=== PATIENT | female | born 1985 | race Caucasian/White ===

== ENCOUNTER 2016-11-15 17:24 | Emergency (ER) | payer OTHER, SELFPAY ==
[2016-11-15] MEDS ORDERED: Famotidine In NaCl 20 mg/50 ml Premix Bag ONE (18:15)
[2016-11-15] MEDS ORDERED: diphenhydrAMINE HCl 50 MG/ML 1 ML VIAL ONE (18:15)
[2016-11-15] MEDS ORDERED: Ketorolac Tromethamine 30 MG/ML VIAL ONE (18:15)
[2016-11-15] MEDS ORDERED: Prochlorperazine 10 MG/2 ML VIAL ONE (18:15)
--- NOTE | 2016-11-15 20:34 | ERRECORD ---
[facility] EMERGENCY RECORD HPI HEADACHE (18:15 JPIP) CHIEF COMPLAINT: Patient presents for evaluation of migraine headache. HISTORIAN: History provided by patient. LOCATION: No localizing symptoms. QUALITY: Pain is dull in nature. SEVERITY: Maximum severity of pain rated as 10/10. 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 ASSOCIATED WITH FEMALE: No associated chills, No associated fever, No associated focal weakness, No associated neck pain, No associated syncope, No associated tingling, No associated numbness, +nausea and vomiting. EXACERBATED BY: Patient's condition exacerbated by eye opening, Patient's condition exacerbated by light. RELIEVED BY: Patient's condition relieved by nothing. RISK FACTORS: Subarachnoid hemorrahage risk factor analysis completed. ROS (18:16 JPIP) CONSTITUTIONAL: Historian denies chills, denies fever, reports malaise. EYES: Historian denies eye redness, reports photophobia, denies vision changes. ENT: Historian denies dysphagia, denies otalgia, denies rhinorrhea, denies sinus pain, denies sore throat. CARDIOVASCULAR: Historian denies chest pain. GI: Historian denies abdominal pain, reports nausea, reports vomiting. NEUROLOGIC: Historian denies confusion, denies dizziness, denies focal weakness, reports headache, denies lethargy, denies mental status changes, denies paresthesias, denies vertigo. NOTES: All systems reviewed, negative except as described above. PAST MEDICAL HISTORY (17:41 ERUI) MEDICAL HISTORY: Flu vaccine not up to date, Tetanus immunization up to date, Pneumococcal vaccine not up to date, Notes: patient reports h/o psoriasis and migraines., No past medical history of cardiac disease. Notes: migraines, PSORIASIS. reviewed 11/15/16. FEMALE SURGICAL HISTORY: Surgical history of section, Notes: 2004, 2011, 2012. Surgical history of section x 3,. reviewed 11/15/16. PSYCHIATRIC HISTORY: Psychiatric history includes, depression, Notes: patient reports does not take any meds for depression regardless of having a script. Psychiatric history includes, anxiety. 09/21/16depression. currently is not taking meds for dx. 11/15/16. SOCIAL HISTORY: Patient denies alcohol use, Patient denies drug use, Patient currently uses tobacco, Patient drinks &a-1R&a+25V*p+0X*c9864V*c202B*c15G*c2P*p-0X&a-25V&a+1R Name: Brii Bowden : 1985 F31 MedRec: [id number] AcctNum: [id number] Prepared: Shilpa Nov 15, 2016 19:51 by Interface Page 1 of 3 pMD [facility] EMERGENCY RECORD socially, Alcohol history notes: 3 beers, Patient denies drug use, Lives at home, with family, grandparents house. Patient smokes 1/2 packs per day. REVIEWED 09/21/16. FAMILY HISTORY: No known family hisotry. Family istory is not significant. reviewed 09/21/16. KNOWN ALLERGIES No Known Allergies CURRENT MEDICATIONS No recorded medications VITAL SIGNS VITAL SIGNS: Pulse: 100, Resp: 18, Pain: 10, O2 sat: 100 on Room Air, Time: 11/15/2016 17:37. (17:37 ERUI) BP: 105/69, Pulse: 91, Resp: 16, Temp: 97.8, Pain: 2, O2 sat: 100 on r/a, Time: 11/15/2016 19:35. (19:35 EMAT) PHYSICAL EXAM (18:18 JPIP) CONSTITUTIONAL: Vital Signs Reviewed, Patient afebrile, Pulse, tachycardic, Blood pressure normal, Respiratory rate normal, Patient appears, in moderate pain distress, Patient alert and oriented to person, place and time, Nursing notes reviewed. HEAD: Head exam included findings of head atraumatic, normocephalic. EYES: Eye exam included findings of eyelids normal to inspection, Pupils equally round and reactive to light, Left pupil 2 mm in size, Right pupil 2 mm in size, Extraocular muscles intact, Conjunctiva normal, Sclera normal, no periorbital ecchymosis, no periorbital edema, no periorbital erythema, no nystagmus. ENT: Ear exam normal, external ear normal, tympanic membranes normal, no foreign body, no drainage, no bleeding, Pharynx exam normal, not injected, no swelling, symmetrical, Mouth exam normal, mucous membranes moist. NECK: Neck exam included findings of normal range of motion, Trachea midline, no meningeal signs, no cervical adenopathy, no tenderness. RESPIRATORY CHEST: Respiratory exam included findings of no respiratory distress, Breath sounds clear, No wheezing, No rales, No rhonchi, Breath sounds not absent, Breath sounds not diminished. CARDIOVASCULAR: Cardiovascular exam included findings of, rate tachycardic, rhythm regular, Heart sounds normal. ABDOMEN FEMALE: Abdominal exam included findings of abdomen tender, to the epigastric region, to the left upper quadrant, mild intensity, Liver normal, Spleen normal, no distension, no mass, no pulsatile masses, no peritoneal signs, no rigidity, no guarding, no rebound. &a-1R&a+25V*p+0X*t1276Q*c202B*c15G*c2P*p-0X&a-25V&a+1R Name: Brii Bowden : 1985 F31 MedRec: [id number] AcctNum: [id number] Prepared: Shilpa Nov 15, 2016 19:51 by Interface Page 2 of 3 pMD [facility] EMERGENCY RECORD MEDICATION ADMINISTRATION SUMMARY Drug Name: famotidine (PF)-NaCl (iso-os), Dose Ordered: 20 mg, Route: IV Piggy Back, Status: Given, Time: 18:39 11/15/2016, Drug Name: Compazine injection, Dose Ordered: 5 mg, Route: IV Push, Status: Given, Time: 18:38 11/15/2016, Drug Name: diphenhydrAMINE injection, Dose Ordered: 25 mg, Route: IV Push, Status: Given, Time: 18:36 11/15/2016, Drug Name: Toradol injection, Dose Ordered: 30 mg, Route: IV Push, Status: Given, Time: 18:36 11/15/2016, Drug Name: Normal Saline, Dose Ordered: 1000 mL/hr, Route: IV Fluid Infusion, Status: Given, Time: 18:03 11/15/2016, Detailed record available in Medication Service section. DOCTOR NOTES RE-EVALUATION: Routine re-evaluation, after administration of antiemetics, Routine re-evaluation, after administration of IV fluids, The patient's condition has improved. (19:15 JPIP) Routine re-evaluation, after administration of antiemetics, Routine re-evaluation, after administration of IV fluids, The patient's condition has improved, sleeping quietly, easily awakened, states she's feeling much better. (19:21 JPIP) PROBLEM LIST No recorded problems DIAGNOSIS (19:22 JPIP) FINAL: PRIMARY: Migraine (unspecified). PRESCRIPTION (18:48 JPIP) Compazine tablet: TABLET : 10 mg : ORAL : Quantity: 1 Unit: tab(s) Route: ORAL Schedule: every 8 hours PRN Dispense: 20 May substitute. Refills: No Refills . NOTES: take with the diphenhydramine at onset of headache No refills. diphenhydrAMINE oral: TABLET : 50 mg : ORAL : Quantity: 1 Unit: tab(s) Route: ORAL Schedule: every 8 hours PRN Dispense: 20 May substitute. Refills: No Refills . NOTES: Take with the compazine at the onset of a headache. No refills. DISPOSITION PATIENT: Disposition Type: Discharge, Disposition: *Discharge Home, Condition: Good. (19:22 JPIP) Patient left the department. (19:48 EMAT) [place]: EMAT=[place] Almanza, Jacques HOLDERI=[place] Peña, Sujata JPIP=DO Astudillo Joseph &a-1R&a+25V*p+0X*b5319G*c202B*c15G*c2P*p-0X&a-25V&a+1R Name: Brii Bowden : 1985 F31 MedRec: [id number] AcctNum: [id number] Prepared: Shilpa Nov 15, 2016 19:51 by Interface Page 3 of 3 pMD MTDD
--- NOTE | 2016-11-15 20:39 | PICIS ---
[facility] EMERGENCY RECORD TRIAGE (MonNov 15, 2016 17:37 ERUI) TRIAGE NOTES: MIGRAINE X 1 WK, VOMTING. (MonNov 15, 2016 17:37 ERUI) PATIENT: NAME: Biri Bowden, AGE: 31, GENDER: female, : Mon1985, TIME OF GREET: MonNov 15, 2016 17:25, PREFERRED LANGUAGE: Guatemalan, ETHNICITY: Not or , ECODE BILLING MAP: [facility], SSN: [id number], Zip Code: [address], KG WEIGHT: 91.17, PHONE: , , , PERSON ID: [id number], PAYMENT: [employer] Self Pay, PCP: GAYLE Mccormick Kimberly. (MonNov 15, 2016 17:37 ERUI) COMPLAINT: MIGRAINE. (MonNov 15, 2016 17:37 ERUI) ADMISSION: URGENCY: 3 Urgent, ADMISSION SOURCE: Home, TRANSPORT: CAR, BED: TRIAGE. (MonNov 15, 2016 17:37 ERUI) SIRS SCORING: Heart Rate 55-109 (0), Temp range 96.8-101.1 (0), respiratory rate 12-24 (0), Mental Status altered: no (0). (17:41 ERUI) TRIAGE SCREENING: Patient denies suicidal ideation, Patient denies presence of domestic violence. (17:41 ERUI) LMP: Last menstrual period: 10/15/2016. (17:41 ERUI) TREATMENTS IN PROGRESS: Treatments given Prehospital: NONE. (17:41 ERUI) PROVIDERS: TRIAGE NURSE: Sujata Peña RN. (MonNov 15, 2016 17:37 ERUI) PREVIOUS VISIT ALLERGIES: No Known Allergies. (MonNov 15, 2016 17:37 ERUI) No Known Allergies. (17:41 ERUI) KNOWN ALLERGIES No Known Allergies CURRENT MEDICATIONS No recorded medications VITAL SIGNS VITAL SIGNS: Pulse: 100, Resp: 18, Pain: 10, O2 sat: 100 on Room Air, Time: 11/15/2016 17:37. (17:37 ERUI) BP: 105/69, Pulse: 91, Resp: 16, Temp: 97.8, Pain: 2, O2 sat: 100 on r/a, Time: 11/15/2016 19:35. (19:35 EMAT) NURSING ASSESSMENT: HEADACHE (17:41 ERUI) NURSING DIAGNOSIS: Nursing diagnosis: MIGRAINE. CONSTITUTIONAL: Patient arrives ambulatory, Gait steady, History obtained from patient, Patient appears comfortable, Patient cooperative, Patient alert, Oriented to person, place and time, Skin warm, Skin dry, Patient complains of MIGRAINE. PAIN: pressure pain, diffusely to the head, constant, Patient rates pain as 0 out of 10, Pain exacerbated by, NOISE, LIGHT, Nothing has been tried to alleviate the pain. HEADACHE: Headache assessment findings include headache not worst &a-1R&a+25V*p+0X*c5559K*c202B*c15G*c2P*p-0X&a-25V&a+1R Name: Brii Bowden : 1985 F31 MedRec: [id number] AcctNum: [id number] Prepared: Shilpa Nov 15, 2016 19:57 by Interface Page 1 of 8 pMD [facility] EMERGENCY RECORD of life, history of migraines, Associated with nausea, Associated with vomiting, Associated with photophobia, Associated with phonophobia. NEURO: Pupils equally round and reactive to light, Able to close eyes, Face symmetrical, Speech normal, GCS:, Eye opening: (4) - Spontaneous, Verbal: (5) - Oriented/conversive, Motor: (6) - Obeys commands/Spontaneous, Hand grasps equal, Upper extremity strength strong, Lower extremity strength strong, Foot press equal, no associated dizziness present, no associated vomiting. SAFETY: Side rails up, Cart/Stretcher in lowest position, Call light within reach, Hospital ID band on. NURSING PROCEDURE: DISCHARGE NOTE (19:35 EMAT) DISCHARGE: Patient discharged to home, ambulating without assistance, family driving, accompanied by other family member, Summary of Care printed/ provided, Discharge instructions given to patient, Prescriptions given and instructions on side effects given, Name of prescription(s) given: compazine, benadryl. BELONGINGS: Belongings remain with patient. VITAL SIGNS: BP: 105, / 69, Pulse: 91, Resp: 16, Temp: 97.8, Pain: 2, O2 sat: 100, on: r/a. NURSING PROCEDURE: IV (17:45 OO) PATIENT IDENITIFIER: Patient actively involved in identification process, Patient's identity verified by patient stating name, Patient's identity verified by patient stating date, Patient's identity verified by hospital ID bracelet. IV SITE 1: IV therapy indicated for medication administration, IV established, to the left antecubital, using a 20 gauge catheter, in one attempt, Saline lock established, Flushed with normal saline (mls): 10ML, Labs drawn at time of placement, labeled in the presence of the patient and sent to lab. ORDER DETAILS Order Name: SALINE LOCK, Status: Done, Time: 17:48 11/15/2016, User: [employer], - Ordered for: DO Astudillo Joseph, - Entered by: DO Astudillo Joseph - Shilpa Nov 15, 2016 17:40, - Quantity: 1. MEDICATION ADMINISTRATION SUMMARY Drug Name: famotidine (PF)-NaCl (iso-os), Dose Ordered: 20 mg, Route: IV Piggy Back, Status: Given, Time: 18:39 11/15/2016, Drug Name: Compazine injection, Dose Ordered: 5 mg, Route: IV Push, Status: Given, Time: 18:38 11/15/2016, Drug Name: diphenhydrAMINE injection, Dose Ordered: 25 mg, Route: IV Push, Status: Given, Time: 18:36 11/15/2016, Drug Name: Toradol injection, Dose Ordered: 30 mg, Route: IV Push, &a-1R&a+25V*p+0X*j9208F*c202B*c15G*c2P*p-0X&a-25V&a+1R Name: Brii Bowden : 1985 F31 MedRec: [id number] AcctNum: [id number] Prepared: osman Nov 15, 2016 19:57 by Interface Page 2 of 8 pMD [facility] EMERGENCY RECORD Status: Given, Time: 18:36 11/15/2016, Drug Name: Normal Saline, Dose Ordered: 1000 mL/hr, Route: IV Fluid Infusion, Status: Given, Time: 18:03 11/15/2016, Detailed record available in Medication Service section. MEDICATION SERVICE Compazine injection: Order: Compazine injection (prochlorperazine edisylate) - Dose: 5 mg : IV Push Schedule: Now Ordered by: Kyle Astudillo DO Entered by: Kyle Astudillo DO MonNov 15, 2016 17:41 , Acknowledged by: Jacques Almanza RN MonNov 15, 2016 18:37 Documented as given by: aJcques Almanza RN MonNov 15, 2016 18:38 Patient, Medication, Dose, Route and Time verified prior to administration. Amount given: 5 mg, IV SITE #1 IVPB or drip, initial infusion, IVPB mixed in: 100ml, Fluid: 0.9NS, via primary tubing, Awake and alert- acceptable, Catheter placement confirmed via flush prior to administration, IV site without signs or symptoms of infiltration during medication administration, No swelling during administration, No drainage during administration, IV flushed after administration, Correct patient, time, route, dose and medication confirmed prior to administration, Patient advised of actions and side-effects prior to administration, Allergies confirmed and medications reviewed prior to administration, Patient in position of comfort, Side rails up, Cart in lowest position, Family at bedside. : Follow Up : Response assessment performed, No signs or symptoms of allergic reaction noted. (19:26 ERUI) : Follow Up : Response assessment performed, No signs or symptoms of allergic reaction noted, Decreased pain, Advised not to ambulate without assistance, Patient in position of comfort, Side rails up, Cart in lowest position, Family at bedside. (18:50 EMAT) diphenhydrAMINE injection: Order: diphenhydrAMINE injection (diphenhydramine HCl) - Dose: 25 mg : IV Push Schedule: Now Ordered by: Kyle Astudillo DO Entered by: Kyle Astudillo DO MonNov 15, 2016 17:41 , Acknowledged by: Cristela Aaron LVN MonNov 15, 2016 18:04 Documented as given by: Jacques Almanza RN MonNov 15, 2016 18:36 Patient, Medication, Dose, Route and Time verified prior to administration. Amount given: 25 mg, IV SITE #1 IVP, initial medication, Slowly, Awake and alert- acceptable, Catheter placement confirmed via flush prior to administration, IV site without signs or symptoms of infiltration during medication administration, No swelling during administration, No drainage during administration, IV flushed after administration, Correct patient, time, route, dose and medication confirmed prior to administration, Patient advised of actions and side-effects prior to administration, Allergies confirmed and &a-1R&a+25V*p+0X*w1987M*c202B*c15G*c2P*p-0X&a-25V&a+1R Name: Brii Bowden : 1985 F31 MedRec: [id number] AcctNum: [id number] Prepared: MonNov 15, 2016 19:57 by Interface Page 3 of 8 pMD [facility] EMERGENCY RECORD medications reviewed prior to administration, Patient in position of comfort, Side rails up, Cart in lowest position, Family at bedside. : Follow Up : Response assessment performed, No signs or symptoms of allergic reaction noted, Decreased pain, _IV SITE #1:_. (19:26 ERUI) famotidine (PF)-NaCl (iso-os): Order: famotidine (PF)-NaCl (iso-os) (famotidine/sodium chloride, iso-osmotic/preservative free) - Dose: 20 mg : IV Piggy Back Schedule: Now Ordered by: Kyle Astudillo DO Entered by: Kyle Astudillo DO MonNov 15, 2016 17:40 , Acknowledged by: Cristela Aaron LVN MonNov 15, 2016 18:04 Documented as given by: Jacques Almanza RN MonNov 15, 2016 18:39 Patient, Medication, Dose, Route and Time verified prior to administration. Amount given: 20 mg, IV SITE #1 IVPB or drip, initial infusion, Premixed, via primary tubing, Awake and alert- acceptable, Catheter placement confirmed via flush prior to administration, IV site without signs or symptoms of infiltration during medication administration, No swelling during administration, No drainage during administration, IV flushed after administration, Correct patient, time, route, dose and medication confirmed prior to administration, Patient advised of actions and side-effects prior to administration, Allergies confirmed and medications reviewed prior to administration, Patient in position of comfort, Side rails up, Cart in lowest position, Family at bedside. : Follow Up : Response assessment performed, No signs or symptoms of allergic reaction noted, _IV SITE #1:_, Medication infusion discontinued, on MonNov 15, 2016 19:27, 50 minutes, . (19:26 ERUI) Normal Saline: Order: Normal Saline (0.9 % sodium chloride) - Dose: 1000 mL/hr : IV Fluid Infusion Schedule: Now Ordered by: Kyle Astudillo DO Entered by: Kyle Astudillo DO MonNov 15, 2016 17:40 , Acknowledged by: Cristela Aaron LVN MonNov 15, 2016 18:03 Documented as given by: Cristela Aaron LVN MonNov 15, 2016 18:03 Patient, Medication, Dose, Route and Time verified prior to administration. Amount given: 1 L, IV SITE #1 IV fluids established for hydration, IV SITE #1 into right antecubital, IV SITE #1 1st bag hung, IV SITE #1 bolus of 1000 ml established, via gravity tubing, Catheter placement confirmed via flush prior to administration, IV site without signs or symptoms of infiltration during medication administration, No swelling during administration, No drainage during administration, IV flushed after administration, Correct patient, time, route, dose and medication confirmed prior to administration, Patient advised of actions and side-effects prior to administration, Allergies confirmed and medications reviewed prior to administration, Patient in position of comfort, Side rails up, Cart in lowest &a-1R&a+25V*p+0X*c3837E*c202B*c15G*c2P*p-0X&a-25V&a+1R Name: Brii Bowden : 1985 F31 MedRec: [id number] AcctNum: [id number] Prepared: MonNov 15, 2016 19:57 by Interface Page 4 of 8 pMD [facility] EMERGENCY RECORD position, Family at bedside. : Follow Up : Response assessment performed, No signs or symptoms of allergic reaction noted, _IV SITE #1:_, Medication infusion discontinued, on MonNov 15, 2016 19:27, Total infusion time IV site 1 1 hour, 25 minutes, ., Total amount infused: 1000ML. (19:27 ERUI) Toradol injection: Order: Toradol injection (ketorolac tromethamine) - Dose: 30 mg : IV Push Schedule: Now Ordered by: Kyle Astudillo DO Entered by: Kyle Astudillo DO MonNov 15, 2016 17:41 , Acknowledged by: Cristela Aaron LVN MonNov 15, 2016 18:04 Documented as given by: Jacques Almanza RN osman Nov 15, 2016 18:36 Patient, Medication, Dose, Route and Time verified prior to administration. Amount given: 30 mg, IV SITE #1 IVP, initial medication, Slowly, Awake and alert- acceptable, Catheter placement confirmed via flush prior to administration, IV site without signs or symptoms of infiltration during medication administration, No swelling during administration, No drainage during administration, IV flushed after administration, Correct patient, time, route, dose and medication confirmed prior to administration, Patient advised of actions and side-effects prior to administration, Allergies confirmed and medications reviewed prior to administration, Patient in position of comfort, Side rails up, Cart in lowest position, Family at bedside. : Follow Up : Response assessment performed, No signs or symptoms of allergic reaction noted, _IV SITE #1:_. (19:27 ERUI) HPI HEADACHE (18:15 JPIP) CHIEF COMPLAINT: Patient presents for evaluation of migraine headache. HISTORIAN: History provided by patient. LOCATION: No localizing symptoms. QUALITY: Pain is dull in nature. SEVERITY: Maximum severity of pain rated as 10/10. 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 ASSOCIATED WITH FEMALE: No associated chills, No associated fever, No associated focal weakness, No associated neck pain, No associated syncope, No associated tingling, No associated numbness, +nausea and vomiting. EXACERBATED BY: Patient's condition exacerbated by eye opening, Patient's condition exacerbated by light. RELIEVED BY: Patient's condition relieved by nothing. RISK FACTORS: Subarachnoid hemorrahage risk factor analysis completed. ROS (18:16 JPIP) CONSTITUTIONAL: Historian denies chills, denies fever, reports malaise. &a-1R&a+25V*p+0X*v3223N*c202B*c15G*c2P*p-0X&a-25V&a+1R Name: Brii Bowden : 1985 F31 MedRec: [id number] AcctNum: [id number] Prepared: MonNov 15, 2016 19:57 by Interface Page 5 of 8 pMD [facility] EMERGENCY RECORD EYES: Historian denies eye redness, reports photophobia, denies vision changes. ENT: Historian denies dysphagia, denies otalgia, denies rhinorrhea, denies sinus pain, denies sore throat. CARDIOVASCULAR: Historian denies chest pain. GI: Historian denies abdominal pain, reports nausea, reports vomiting. NEUROLOGIC: Historian denies confusion, denies dizziness, denies focal weakness, reports headache, denies lethargy, denies mental status changes, denies paresthesias, denies vertigo. NOTES: All systems reviewed, negative except as described above. PAST MEDICAL HISTORY (17:41 ERUI) MEDICAL HISTORY: Flu vaccine not up to date, Tetanus immunization up to date, Pneumococcal vaccine not up to date, Notes: patient reports h/o psoriasis and migraines., No past medical history of cardiac disease. Notes: migraines, PSORIASIS. reviewed 11/15/16. FEMALE SURGICAL HISTORY: Surgical history of section, Notes: 2004, 2011, 2012. Surgical history of section x 3,. reviewed 11/15/16. PSYCHIATRIC HISTORY: Psychiatric history includes, depression, Notes: patient reports does not take any meds for depression regardless of having a script. Psychiatric history includes, anxiety. 09/21/16depression. currently is not taking meds for dx. 11/15/16. SOCIAL HISTORY: Patient denies alcohol use, Patient denies drug use, Patient currently uses tobacco, Patient drinks socially, Alcohol history notes: 3 beers, Patient denies drug use, Lives at home, with family, grandparents house. Patient smokes 1/2 packs per day. REVIEWED 09/21/16. FAMILY HISTORY: No known family hisotry. Family istory is not significant. reviewed 09/21/16. PHYSICAL EXAM (18:18 JPIP) CONSTITUTIONAL: Vital Signs Reviewed, Patient afebrile, Pulse, tachycardic, Blood pressure normal, Respiratory rate normal, Patient appears, in moderate pain distress, Patient alert and oriented to person, place and time, Nursing notes reviewed. HEAD: Head exam included findings of head atraumatic, normocephalic. EYES: Eye exam included findings of eyelids normal to inspection, Pupils equally round and reactive to light, Left pupil 2 mm in size, Right pupil 2 mm in size, Extraocular muscles intact, Conjunctiva normal, Sclera normal, no periorbital ecchymosis, no periorbital edema, no periorbital erythema, no nystagmus. ENT: Ear exam normal, external ear normal, tympanic membranes normal, no foreign body, no drainage, no bleeding, Pharynx exam normal, not injected, no swelling, symmetrical, Mouth exam normal, &a-1R&a+25V*p+0X*d2536A*c202B*c15G*c2P*p-0X&a-25V&a+1R Name: Brii Bowden : 1985 F31 MedRec: [id number] AcctNum: [id number] Prepared: MonNov 15, 2016 19:57 by Interface Page 6 of 8 pMD [facility] EMERGENCY RECORD mucous membranes moist. NECK: Neck exam included findings of normal range of motion, Trachea midline, no meningeal signs, no cervical adenopathy, no tenderness. RESPIRATORY CHEST: Respiratory exam included findings of no respiratory distress, Breath sounds clear, No wheezing, No rales, No rhonchi, Breath sounds not absent, Breath sounds not diminished. CARDIOVASCULAR: Cardiovascular exam included findings of, rate tachycardic, rhythm regular, Heart sounds normal. ABDOMEN FEMALE: Abdominal exam included findings of abdomen tender, to the epigastric region, to the left upper quadrant, mild intensity, Liver normal, Spleen normal, no distension, no mass, no pulsatile masses, no peritoneal signs, no rigidity, no guarding, no rebound. EVENTS TRANSFER: Triage to Emergency Triage. (MonNov 15, 2016 17:37 ERUI) Emergency Triage to Emergency Room -02. (17:38 ERUI) Emergency Emergency Room -02 to Holding (Hold Bed). (19:40 WJAN) Emergency Emergency Room -02 to Holding (Hold Bed). (19:40 WJAN) Emergency Emergency Room -02 to Holding. (19:40 WJAN) Removed from Emergency Holding. (19:48 EMAT) O2SAT INTERPRETATION (18:35 JPIP) O2SAT: Continuous pulse oximetry, Oxygen saturation 100%, on room air, Oxygen saturation interpretation: Normal, No intervention required. DOCTOR NOTES RE-EVALUATION: Routine re-evaluation, after administration of antiemetics, Routine re-evaluation, after administration of IV fluids, The patient's condition has improved. (19:15 JPIP) Routine re-evaluation, after administration of antiemetics, Routine re-evaluation, after administration of IV fluids, The patient's condition has improved, sleeping quietly, easily awakened, states she's feeling much better. (19:21 JPIP) PROBLEM LIST No recorded problems DIAGNOSIS (19:22 JPIP) FINAL: PRIMARY: Migraine (unspecified). DISPOSITION PATIENT: Disposition Type: Discharge, Disposition: *Discharge Home, Condition: Good. (19:22 JPIP) Patient left the department. (19:48 EMAT) &a-1R&a+25V*p+0X*r6925Z*c202B*c15G*c2P*p-0X&a-25V&a+1R Name: Brii Bowden : 1985 F31 MedRec: [id number] AcctNum: [id number] Prepared: Shilpa Nov 15, 2016 19:57 by Interface Page 7 of 8 pMD [facility] EMERGENCY RECORD INSTRUCTION (19:22 JPIP) DISCHARGE: MIGRAINE HEADACHE. FOLLOWUP: GAYLE Mccormick, Antonia, [facility], [address] [place] [id number], . SPECIAL: Follow up with Primary Care Physician within 72 hours Return to the Emergency Department for increased symptoms problems or concerns. PRESCRIPTION (18:48 JPIP) Compazine tablet: TABLET : 10 mg : ORAL : Quantity: 1 Unit: tab(s) Route: ORAL Schedule: every 8 hours PRN Dispense: 20 May substitute. Refills: No Refills . NOTES: take with the diphenhydramine at onset of headache No refills. diphenhydrAMINE oral: TABLET : 50 mg : ORAL : Quantity: 1 Unit: tab(s) Route: ORAL Schedule: every 8 hours PRN Dispense: 20 May substitute. Refills: No Refills . NOTES: Take with the compazine at the onset of a headache. No refills. IMAGING (19:47 EMAT) *SUPPLY CHARGE SHEET: Image captured from scanner. *DISCHARGE INSTRUCTIONS RECEIPT: Image captured from scanner. Burton: RHIANNONOO=MIGDALIA Aaron, January EMAT=[place] Almanza, Jacquse SPARKS=[place] Peña, Sujata TORRES=DO Astudillo Joseph WJAN=[place] Cartagena, Viki &a-1R&a+25V*p+0X*k1487Y*c202B*c15G*c2P*p-0X&a-25V&a+1R Name: Brii Bowden : 1985 F31 MedRec: [id number] AcctNum: [id number] Prepared: Shilpa Nov 15, 2016 19:57 by Interface Page 8 of 8 pMD MTDD
== END 2016-11-15 19:35 | disposition home or self-care (01) ==
LOC: BURERS 17:24
DX: G43.909 Migraine, unspecified, not intractable, without status migrainosus (principal); F32.9 Major depressive disorder, single episode, unspecified; F41.9 Anxiety disorder, unspecified; F17.210 Nicotine dependence, cigarettes, uncomplicated
CPT/HCPCS: 96361; 96365; 96375; J0780; J1200; J1885

== ENCOUNTER 2017-01-11 13:24 | Emergency (ER) | payer SELFPAY ==
[2017-01-11 13:48] LABS: Bilirubin Negative (Negative); Blood, Urine Trace (Negative); Clarity Clear (Clear); Glucose, Urine (Dipstick) Negative (Negative); Leukocyte Negative (Negative); Nitrite Negative (Negative); Protein, Urine (Dipstick) Negative (Neg-Trace); Specific Gravity, Urine 1.025 (1.005-1.030); Urobilinogen 0.2 mg/dL (0.2-1.0); pH, Urine 6.5 (5.0-9.0)
[2017-01-11 13:49] LABS: Pregu Control Bar Appear? YES (CONTROL BAR); Specific Gravity 1.027 (1.002-1.036)
[2017-01-11 13:51] LABS: Bacteria/HPF Rare-Few HPF (None Seen); RBC/HPF 0-3 HPF (0-3); WBC/HPF 0-3 HPF (0-3)
[2017-01-11 13:55] LABS: #Basophils 0.1 thou/uL (0.0-0.2); #Eosinphils 0.2 thou/uL (0.0-0.7); #Lymphocytes 2.1 thou/uL (1.20-3.40); #Monocytes 0.4 thou/uL (0.11-0.59); #Neutrophils 5.2 thou/uL (1.40-6.50); %Eosinophils 2.2 % (0.0-10.0); %Lymphocytes 25.8 % (21.0-51.0); %Monocytes 5.4 % (0.0-10.0); %Neutrophils 65.5 % (42.0-75.0); Hemoglobin 14.5 g/dL (12.0-16.0); Mean Corpuscular HGB CONC 34.1 g/dL (32.0-36.0); Mean Corpuscular Hemoglobin 31.3 pg (27.0-31.0); Mean Corpuscular Volume 91.6 fl (81.0-99.0); Mean Platelet Volume 6.9 fL (7.4-10.4); Platelet Count 262 thou/uL (130-400); RBC Distribution Width 11.8 % (11.5-14.5); Red Blood Cell (RBC) Count 4.65 mill/uL (4.20-5.40)
[2017-01-11 14:28] LABS: ALT (SGPT) 29 U/L (0-55); AST (SGOT) 18 U/L (5-34); Alkaline Phosphatase 74 U/L (40-150); Anion Gap 13 mmol/L (10-20); BUN (Urea Nitrogen) 16 mg/dL (7.0-18.7); Bilirubin, Total 0.2 mg/dL (0.2-1.2); Calc. Creatinine Clearance 0 mL/min (70-130); Calcium 9.6 mg/dL (7.8-10.44); Carbon Dioxide 24 mmol/L (22-29); Chloride 106 mmol/L (98-107); Estimated GFR-MDRD 81; Globulin 2.8 g/dL (2.4-3.5); Glucose 132 mg/dL (70-105); Lipase 50 U/L (8-78); Potassium 3.9 mmol/L (3.5-5.1); Protein, Total 6.8 g/dL (6.0-8.3); Sodium 139 mmol/L (136-145)
== END 2017-01-11 14:51 | disposition home or self-care (01) ==
LOC: BURERS 13:24
DX: K58.9 Irritable bowel syndrome, unspecified (principal); G43.909 Migraine, unspecified, not intractable, without status migrainosus; F17.210 Nicotine dependence, cigarettes, uncomplicated
CPT/HCPCS: 36415; 80053; 81003; 81015; 81025; 83690; 85025; 99284

== ENCOUNTER 2017-01-26 18:46 | Emergency (ER) | payer SELFPAY ==
[2017-01-26 19:25] LABS: Bilirubin Negative (Negative); Blood, Urine Large (Negative); Clarity Clear (Clear); Glucose, Urine (Dipstick) Negative (Negative); Leukocyte Trace (Negative); Nitrite Negative (Negative); Protein, Urine (Dipstick) Trace mg/dL (Neg-Trace); Urobilinogen 0.2 mg/dL (0.2-1.0); pH, Urine 5.5 (5.0-9.0)
[2017-01-26 19:28] LABS: Bacteria/HPF Rare-Few HPF (None Seen); RBC/HPF 21-50 HPF (0-3); Squamous Epithelial 0-3 HPF (0-3); WBC/HPF 0-3 HPF (0-3)
[2017-01-26 19:29] LABS: Pregnancy Test - Urine (BHCG) NEGATIVE (NEGATIVE); Pregu Control Bar Appear? YES (CONTROL BAR)
[2017-01-26] MEDS ORDERED: metroNIDAZOLE 250 MG TAB ONE (19:42)
[2017-01-26] MEDS ORDERED: traMADol HCl 50 MG TAB ONE (19:42)
[2017-01-29 10:57] LABS: Chlamydia by PCR Not Detected (NotDetected); GC by PCR Not Detected (NotDetected)
== END 2017-01-26 19:46 | disposition home or self-care (01) ==
LOC: BURERS 18:46
DX: N94.6 Dysmenorrhea, unspecified (principal); G43.909 Migraine, unspecified, not intractable, without status migrainosus; F17.210 Nicotine dependence, cigarettes, uncomplicated
CPT/HCPCS: 81003; 81015; 81025; 87480; 87491; 87510; 87591; 87660

== ENCOUNTER 2017-09-11 17:59 | Emergency (ER) | payer SELFPAY | END 2017-09-11 18:43 | disposition home or self-care (01) | LOC: BURERS 17:59 | DX: J11.1 Influenza due to unidentified influenza virus with other respiratory manifestations (principal); F17.210 Nicotine dependence, cigarettes, uncomplicated | CPT/HCPCS: 94640; J7620 ==

== ENCOUNTER 2017-09-20 17:46 | Emergency (ER) | payer SELFPAY ==
[2017-09-20] MEDS ORDERED: HYDROcodone/Acetaminophen 10/325 mg Tablet ONE (18:09)
[2017-09-20] MEDS ORDERED: Ondansetron ODT 4 MG TAB ONE (18:09)
== END 2017-09-20 18:15 | disposition home or self-care (01) ==
LOC: BURERS 17:46
DX: G43.909 Migraine, unspecified, not intractable, without status migrainosus (principal); F17.210 Nicotine dependence, cigarettes, uncomplicated
CPT/HCPCS: 99283; Q0162

== ENCOUNTER 2017-11-10 21:04 | Emergency (ER) | payer OTHER, SELFPAY ==
[2017-11-10 22:01] LABS: Bilirubin Negative (Negative); Blood, Urine Negative (Negative); Clarity Slightly Cloudy (Clear); Glucose, Urine (Dipstick) Negative (Negative); Leukocyte Negative (Negative); Nitrite Negative (Negative); Protein, Urine (Dipstick) Negative (Neg-Trace); Specific Gravity, Urine 1.015 (1.005-1.030); Urobilinogen 0.2 mg/dL (0.2-1.0); pH, Urine 6.5 (5.0-9.0)
[2017-11-10] MEDS ORDERED: metroNIDAZOLE 250 MG TAB ONE (22:27)
[2017-11-13 22:54] LABS: Chlamydia by PCR Not Detected (NotDetected); GC by PCR Not Detected (NotDetected)
== END 2017-11-10 22:40 ==
LOC: BURERS 21:04
DX: O98.312 Other infections with a predominantly sexual mode of transmission complicating pregnancy, second trimester (principal); A59.01 Trichomonal vulvovaginitis; O99.332 Smoking (tobacco) complicating pregnancy, second trimester; F17.210 Nicotine dependence, cigarettes, uncomplicated; Z3A.19 19 weeks gestation of pregnancy
CPT/HCPCS: 81003; 87480; 87491; 87510; 87591; 87660; 99283

== ENCOUNTER 2018-02-09 13:12 | Emergency (ER) | payer OTHER ==
[2018-02-09 14:47] LABS: Bilirubin Negative (Negative); Blood, Urine Negative (Negative); Clarity Clear (Clear); Glucose, Urine (Dipstick) Negative (Negative); Leukocyte Negative (Negative); Nitrite Negative (Negative); Protein, Urine (Dipstick) Negative (Neg-Trace); Urobilinogen 0.2 mg/dL (0.2-1.0); pH, Urine 6.5 (5.0-9.0)
[2018-02-09 14:49] LABS: Specific Gravity, Urine 1.005 (1.005-1.030)
[2018-02-09 14:52] LABS: Amphetamine Not Detected (NotDetected); Barbiturates Screen Not Detected (NotDetected); Benzodiazepine Screen Not Detected (NotDetected); Cocaine Metabolite Screen Not Detected (NotDetected); Medtox Control Line Valid? VALID (VALID); Methadone Not Detected (NotDetected); Methamphetamine Not Detected (NotDetected); Opiate Screen Not Detected (NotDetected); Oxycodone Screen Not Detected (NotDetected); Phencyclidine (PCP) Not Detected (NotDetected); THC/Cannabinoid Screen Not Detected (NotDetected); Tricyclic Screen Not Detected (NotDetected)
[2018-02-09 15:13] LABS: #Basophils 0.1 thou/uL (0.0-0.2); #Lymphocytes 2.3 thou/uL (1.20-3.40); #Monocytes 0.6 thou/uL (0.11-0.59); %Basophils 0.5 % (0.0-1.0); %Eosinophils 0.4 % (0.0-10.0); %Lymphocytes 16.7 % (21.0-51.0); %Monocytes 4.2 % (0.0-10.0); %Neutrophils 78.3 % (42.0-75.0); Hemoglobin 12.1 g/dL (12.0-16.0); Mean Corpuscular HGB CONC 35.3 g/dL (32.0-36.0); Mean Corpuscular Hemoglobin 30.3 pg (27.0-31.0); Mean Corpuscular Volume 85.6 fl (81.0-99.0); Mean Platelet Volume 6.9 fL (7.4-10.4); Platelet Count 239 thou/uL (130-400); RBC Distribution Width 12.1 % (11.5-14.5); Red Blood Cell (RBC) Count 4.01 mill/uL (4.20-5.40)
[2018-02-09 15:25] LABS: ALT (SGPT) 10 U/L (8-55); AST (SGOT) 9 U/L (5-34); Albumin 3.5 g/dL (3.5-5.0); Alkaline Phosphatase 112 U/L (40-150); Anion Gap 13 mmol/L (10-20); BUN (Urea Nitrogen) 6 mg/dL (7.0-18.7); Bilirubin, Total 0.3 mg/dL (0.2-1.2); Calc. Creatinine Clearance 0 mL/min (70-130); Calcium 9.9 mg/dL (7.8-10.44); Carbon Dioxide 26 mmol/L (22-29); Chloride 104 mmol/L (98-107); Estimated GFR-MDRD Greater than 90; Globulin 3.5 g/dL (2.4-3.5); Glucose 91 mg/dL (70-105); Potassium 4.4 mmol/L (3.5-5.1); Sodium 139 mmol/L (136-145)
[2018-02-09] MEDS ORDERED: Fluconazole 100 MG TAB ONE (15:45)
[2018-02-12 01:19] LABS: Chlamydia by PCR Not Detected (NotDetected); GC by PCR Not Detected (NotDetected)
== END 2018-02-09 15:48 ==
LOC: BURERS 13:12
DX: O99.89 Other specified diseases and conditions complicating pregnancy, childbirth and the puerperium (principal); R10.30 Lower abdominal pain, unspecified; O99.613 Diseases of the digestive system complicating pregnancy, third trimester; K21.9 Gastro-esophageal reflux disease without esophagitis; O99.353 Diseases of the nervous system complicating pregnancy, third trimester; G43.909 Migraine, unspecified, not intractable, without status migrainosus; O99.333 Smoking (tobacco) complicating pregnancy, third trimester; F17.210 Nicotine dependence, cigarettes, uncomplicated; Z3A.32 32 weeks gestation of pregnancy
CPT/HCPCS: 80053; 80306; 81003; 85025; 87086; 87480; 87491; 87510; 87591; 87660; 99284

== ENCOUNTER → 2018-02-09 20:50 | Emergency (ER) | payer OTHER | LOC: BURERS 20:50 | DX: Z53.21 Procedure and treatment not carried out due to patient leaving prior to being seen by health care provider (principal) ==

== ENCOUNTER 2020-06-03 19:48 | Emergency (ER) | payer SELFPAY ==
[~2020-06-03 19:48] MED LIST: Iopamidol 370 76% 100 ML VIAL ONE
[2020-06-03 20:25] LABS: Bilirubin Negative (Negative); Blood, Urine Trace (Negative); Clarity Clear (Clear); Glucose, Urine (Dipstick) Negative (Negative); Ketone, Urine Negative (Negative); Leukocyte Negative (Negative); Nitrite Negative (Negative); Protein, Urine (Dipstick) Negative (Neg-Trace); Specific Gravity, Urine 1.025 (1.005-1.030); Urobilinogen 0.2 mg/dL (Less than 2); pH, Urine 5.5 (5.0-9.0)
[2020-06-03 20:27] LABS: Pregnancy Test - Urine (BHCG) Negative (Negative); Pregu Control Background? CLEAR/WHITE (CLR/WHITE); Pregu Control Bar Appear? YES (CONTROL BAR); Specific Gravity 1.025 (1.002-1.036)
[2020-06-03 20:31] LABS: RBC/HPF None Seen HPF (0-3); Squamous Epithelial 0-3 HPF (0-3); WBC/HPF 0-3 HPF (0-3)
[2020-06-03 20:32] LABS: Bacteria/HPF 1+ HPF (None Seen); Yeast-Budding Rare HPF (None Seen)
[2020-06-03 20:38] LABS: #Basophils 0.1 thou/uL (0.0-0.2); #Eosinphils 0.1 thou/uL (0.0-0.7); #Monocytes 0.2 thou/uL (0.11-0.59); #Neutrophils 8.2 thou/uL (1.40-6.50); %Basophils 0.6 % (0.0-1.0); %Eosinophils 0.7 % (0.0-10.0); %Monocytes 2.4 % (0.0-10.0); %Neutrophils 86.4 % (42.0-75.0); Mean Corpuscular HGB CONC 31.4 g/dL (32.0-36.0); Mean Corpuscular Hemoglobin 27.8 pg (27.0-31.0); Mean Corpuscular Volume 88.5 fL (78.0-98.0); Platelet Count 225 thou/uL (130-400); RBC Distribution Width 13.1 % (11.5-14.5); Red Blood Cell (RBC) Count 4.33 mill/uL (4.20-5.40); White Blood Cell (WBC) Count 9.5 thou/uL (4.8-10.8)
[2020-06-03 20:41] LABS: ALT (SGPT) 51 U/L (8-55); AST (SGOT) 25 U/L (5-34); Albumin 4.3 g/dL (3.5-5.0); Alkaline Phosphatase 97 U/L (40-110); Anion Gap 15 mmol/L (10-20); BUN (Urea Nitrogen) 10 mg/dL (7.0-18.7); Bilirubin, Total 0.4 mg/dL (0.2-1.2); Calc. Creatinine Clearance 0 mL/min (70-130); Calcium 9.4 mg/dL (7.8-10.44); Carbon Dioxide 27 mmol/L (22-29); Chloride 100 mmol/L (98-107); Estimated GFR-MDRD 74; Globulin 3.3 g/dL (2.4-3.5); Glucose 95 mg/dL (70-105); Lipase 30 U/L (8-78); Potassium 3.9 mmol/L (3.5-5.1); Protein, Total 7.6 g/dL (6.0-8.3); Sodium 138 mmol/L (136-145)
[2020-06-03] MEDS ORDERED: Ondansetron PF 4 MG/2 ML Vial ONE (21:03)
[2020-06-03] MEDS ORDERED: Ketorolac Tromethamine 30 MG/ML VIAL ONE (21:03)
--- NOTE | 2020-06-03 21:18 | CT ---
CT abdomen and pelvis with IV contrast HISTORY: Abdomen pain. COMPARISON: 06/01/2018. FINDINGS: The lung bases are clear. Tiny nonspecific cystic lesion within the posterior aspect of the spleen is stable. Small hyperdense stones are present within the dependent portion of the gallbladder lumen. Contrast material is present within the urinary collecting systems. Small phlebolith within the right retroperitoneum lies outside of the course of the distal right ureter. No evidence of bowel obstruction or inflammation. Appendix normal. Within the mesenteric fat in the anterior left lower quadrant, adjacent to the junction of the left c olon and sigmoid colon, there is very subtle stranding in the fat without borders or focal fluid. No diverticula are apparent. No direct inflammation of the wall of the colon. IMPRESSION : Very subtle area of mesenteric fat stranding in the left lower quadrant. If symptoms are referable to the left lower quadrant, this may represent a small focus of mesenteric panniculitis. No evidence of complication. Cholelithiasis.
[2020-06-03] MEDS ORDERED: Sodium Chloride 0.9% 100 ML ONE (21:35)
[2020-06-03] MEDS ORDERED: cefTRIAXone\\ROCEPHIN 1 GM VIAL ONE (21:35)
[2020-06-03] MEDS ORDERED: Dicyclomine 20 MG TAB ONE (21:38)
[2020-06-03] MEDS ORDERED: Fentanyl 100 MCG/2 ML VIAL ONE (21:40)
[2020-06-04 23:51] LABS: Chlam.trachomatis by PCR,Urine Not Detected (NotDetected)
== END 2020-06-03 22:18 | disposition home or self-care (01) ==
LOC: BURERS 19:48
DX: K80.20 Calculus of gallbladder without cholecystitis without obstruction (principal); K65.4 Sclerosing mesenteritis; G43.909 Migraine, unspecified, not intractable, without status migrainosus; F32.9 Major depressive disorder, single episode, unspecified; F17.210 Nicotine dependence, cigarettes, uncomplicated
CPT/HCPCS: 74177; 80053; 81003; 81015; 81025; 83690; 85025; 87491; 87591; 96365; 96375; J0696; J1885; J2405; J3010; J3490; Q9967

== ENCOUNTER → 2020-06-29 | Emergency (ER) | payer SELFPAY ==
[~2020-06-29] MED LIST changes: +Fentanyl 100 MCG/2 ML VIAL ONE; +Ketorolac Tromethamine 30 MG/ML VIAL ONE; +Ondansetron PF 4 MG/2 ML Vial ONE
[2020-06-30 00:35] LABS: Bilirubin Negative (Negative); Blood, Urine Negative (Negative); Clarity Clear (Clear); Glucose, Urine (Dipstick) Negative (Negative); Ketone, Urine Trace mg/dL (Negative); Leukocyte Negative (Negative); Nitrite Negative (Negative); Protein, Urine (Dipstick) Negative (Neg-Trace); Specific Gravity, Urine 1.015 (1.005-1.030); Urobilinogen 0.2 mg/dL (Less than 2)
[2020-06-30 00:36] LABS: BHCG - Serum Negative (NEGATIVE); Pregs Control Background? CLEAR/WHITE (CLR/WHITE); Pregs Control Bar Appear? YES (CONTROL BAR)
[2020-06-30 00:39] LABS: #Basophils 0.1 thou/uL (0.0-0.2); #Lymphocytes 1.5 thou/uL (1.20-3.40); #Monocytes 0.6 thou/uL (0.11-0.59); #Neutrophils 10.6 thou/uL (1.40-6.50); %Basophils 0.5 % (0.0-1.0); %Eosinophils 0.2 % (0.0-10.0); %Lymphocytes 11.6 % (21.0-51.0); %Monocytes 4.5 % (0.0-10.0); %Neutrophils 83.3 % (42.0-75.0); Mean Corpuscular HGB CONC 31.2 g/dL (32.0-36.0); Mean Corpuscular Hemoglobin 27.7 pg (27.0-31.0); Mean Corpuscular Volume 88.9 fL (78.0-98.0); Mean Platelet Volume 7.3 fL (7.4-10.4); Platelet Count 291 thou/uL (130-400); RBC Distribution Width 13.2 % (11.5-14.5); Red Blood Cell (RBC) Count 4.34 mill/uL (4.20-5.40); White Blood Cell (WBC) Count 12.7 thou/uL (4.8-10.8)
[2020-06-30 00:46] LABS: ALT (SGPT) 63 U/L (8-55); AST (SGOT) 39 U/L (5-34); Albumin 4.2 g/dL (3.5-5.0); Alkaline Phosphatase 80 U/L (40-110); Anion Gap 16 mmol/L (10-20); BUN (Urea Nitrogen) 8 mg/dL (7.0-18.7); Bilirubin, Total 0.5 mg/dL (0.2-1.2); Calc. Creatinine Clearance 0 mL/min (70-130); Carbon Dioxide 25 mmol/L (22-29); Chloride 99 mmol/L (98-107); Estimated GFR-MDRD 67; Globulin 3.1 g/dL (2.4-3.5); Glucose 137 mg/dL (70-105); Lipase 16 U/L (8-78); Potassium 3.4 mmol/L (3.5-5.1); Protein, Total 7.3 g/dL (6.0-8.3); Sodium 137 mmol/L (136-145)
--- NOTE | 2020-06-30 07:37 | CT ---
PRELIMINARY REPORT/[facility]/EMERGENCY AFTER HOURS PROCEDURE: EXAM: CT Abdomen and Pelvis with Intravenous Contrast CLINICAL HISTORY: S/P GB SURGERY (06/28/20), C/O ABD PAIN TECHNIQUE: Axial computed tomography images of the abdomen and pelvis with intravenous contrast. Coronal and sa gittal reformatted images provided. CONTRAST: With; ISO 370, 100mL COMPARISON: None provided. FINDINGS: LUNG BASES: No basilar airspace consolidation or pleural effusion. LIVER: Low-attenuation of the liver suggesting hepatic steatosis. GALLBLADDER AND BILE DUCTS: Surgical clips in the gallbladder fossa from cholecystectomy. No discrete fluid collection within the gallbladder fossa although there is mild stranding. PANCREAS: Unremarkable. SPLEEN: Subcentimeter low-density lesion in the posterior spleen, too small to characterize and may represent a small cyst. ADRENAL GLANDS: Unremarkable. KIDNEYS, URETERS, AND BLADDER: Unremarkable. No hydronephrosis or nephrolithiasis. No ureteral or bladder calculi. Andrea catheter w ithin the bladder. STOMACH AND BOWEL: No obstruction. No wall thickening. No CT evidence of colitis or acute diverticulitis. APPENDIX: No CT evidence for appendicitis. PERITONEUM: No free fluid. No free air. LYMPH NODES: No lymphadenopathy. REPRODUCTIVE: Unremarkable as visualized. VASCULATURE: No aortic aneurysm. BONES: No fracture or suspicious osseous abnormality. ABDOMINAL WALL AND SOFT TISSUES: Mild multifocal punctate intra-abdominal, mediastinal and subcutaneous gas. IMPRESSION: Postsurgical changes of recent cholecystectomy to include mild stranding in the gallbladder fossa, mcgarry bcutaneous and intra-abdominal stranding and scattered foci of gas. These likely represent expected postsurgical findings. ELECTRONICALLY SIGNED BY: Slick Mon M.D. Jun 30, 2020 1:57:36 AM CDT This report is intended for review by the ordering physician only, in accordance of law. If you recei ve this report in error, please call [facility] at [phone]. FINAL REPORT CT ABDOMEN AND PELVIS WITH CONTRAST: Date: 06/30/[address] of the abdomen and pelvis was performed for evaluation of abdominal pain. The patient is st atus post cholecystectomy as of 06/28/2020, 2 days prior. The lung bases are clear. The liver, spleen, pancreas, adrenal glands, kidneys, and abdominal aorta a ll appeared normal with no acute findings. Clips are seen from the recent cholecystectomy. There is a small amount of stranding in the gallbladder fossa and surrounding fat, probably not unexpected. The spleen has a small 1.0 cm density in its posterior part that may be a small cyst. I doubt its signif icance. The bowel shows no dilation, inflammatory change, or wall thickening. There is no substantial free in tra-abdominal air. One or two very, very tiny locules of gas are seen in the upper abdomen, to be exp ected from the recent surgery. There is considerably more soft tissue gas present in the soft tissues of the anterior abdominal wall and around the medial left rectus muscle. Again, these are presumed t o be postoperative in nature from the recent procedure. CT of the pelvis shows a Andrea catheter is present with the bladder decompressed. No pelvic masses we re seen. No free fluid or inflammatory change. IMPRESSION: Some pockets of mainly abdominal wall gas and minimal stranding around the gallbladder fossa. These a re presumably expected findings being so recently postop. Report in agreement with preliminary reading by [facility]. POS: HOME
== END ==
LOC: BURERS 23:34
DX: G89.18 Other acute postprocedural pain (principal); R10.11 Right upper quadrant pain; K56.7 Ileus, unspecified; F17.210 Nicotine dependence, cigarettes, uncomplicated; F32.9 Major depressive disorder, single episode, unspecified; Z79.899 Other long term (current) drug therapy
CPT/HCPCS: 36415; 51702; 74177; 80053; 81003; 83690; 84703; 85025; 96361; 96374; 96375; J1885; J2405; J3010; Q9967

== ENCOUNTER 2020-07-07 16:07 | Emergency (ER) | payer SELFPAY ==
[2020-07-07] MEDS ORDERED: Morphine 4 MG/ML VIAL ONE (16:30)
[2020-07-07] MEDS ORDERED: Morphine 2 MG/ML SYRINGE ONE (16:30)
[2020-07-07] MEDS ORDERED: Ketorolac Tromethamine 60 MG/2 ML VIAL ONE (16:31)
[2020-07-07 16:40] LABS: #Basophils 0.1 thou/uL (0.0-0.2); #Eosinphils 0.6 thou/uL (0.0-0.7); #Lymphocytes 1.7 thou/uL (1.20-3.40); #Monocytes 0.6 thou/uL (0.11-0.59); #Neutrophils 7.2 thou/uL (1.40-6.50); %Eosinophils 6.3 % (0.0-10.0); %Lymphocytes 16.1 % (21.0-51.0); %Monocytes 6.2 % (0.0-10.0); %Neutrophils 70.4 % (42.0-75.0); Hemoglobin 11.6 g/dL (12.0-16.0); Mean Corpuscular HGB CONC 30.9 g/dL (32.0-36.0); Mean Corpuscular Hemoglobin 27.5 pg (27.0-31.0); Mean Platelet Volume 6.7 fL (7.4-10.4); Platelet Count 341 thou/uL (130-400); RBC Distribution Width 13.4 % (11.5-14.5); Red Blood Cell (RBC) Count 4.23 mill/uL (4.20-5.40); White Blood Cell (WBC) Count 10.3 thou/uL (4.8-10.8)
[2020-07-07] MEDS ORDERED: Ondansetron ODT 4 MG TAB ONE (16:47)
[2020-07-07 16:57] LABS: ALT (SGPT) 35 U/L (8-55); AST (SGOT) 14 U/L (5-34); Albumin 3.9 g/dL (3.5-5.0); Alkaline Phosphatase 97 U/L (40-110); Anion Gap 16 mmol/L (10-20); BUN (Urea Nitrogen) 10 mg/dL (7.0-18.7); Bilirubin, Total Less than 0.2 mg/dL (0.2-1.2); Calc. Creatinine Clearance 0 mL/min (70-130); Calcium 9.2 mg/dL (7.8-10.44); Carbon Dioxide 25 mmol/L (22-29); Chloride 104 mmol/L (98-107); Estimated GFR-MDRD 76; Globulin 3.2 g/dL (2.4-3.5); Glucose 95 mg/dL (70-105); Lipase 71 U/L (8-78); Potassium 4.3 mmol/L (3.5-5.1); Protein, Total 7.1 g/dL (6.0-8.3); Sodium 141 mmol/L (136-145)
--- NOTE | 2020-07-07 17:49 | RAD ---
ACUTE ABDOMEN SERIES: 07/07/20 The chest film in the series is compared with a 03/20/16 study. While the heart size is slightly promin ent, this seems to be a largely expiratory film, and allowing for that, it is probably still within n ormal limits. The lungs are clear. There is no sign of free air beneath the diaphragm. The abdominal films show a normal bowel gas pattern. No pathologic calcifications are seen. Clips are noted in the right upper quadrant from a cholecystectomy. No free air or unusual pockets of air were detected. IMPRESSION: No significant finding. POS: HOME
== END 2020-07-07 17:37 | disposition home or self-care (01) ==
LOC: BURERS 16:07
DX: S29.011A Strain of muscle and tendon of front wall of thorax, initial encounter (principal); R10.811 Right upper quadrant abdominal tenderness; F32.9 Major depressive disorder, single episode, unspecified; F41.9 Anxiety disorder, unspecified; F17.210 Nicotine dependence, cigarettes, uncomplicated; G43.909 Migraine, unspecified, not intractable, without status migrainosus; Z79.899 Other long term (current) drug therapy
CPT/HCPCS: 36415; 74022; 80053; 83605; 83690; 85025; 96372; J1885; J2270; Q0162

== ENCOUNTER 2020-11-22 20:52 | Emergency (ER) | payer SELFPAY ==
[2020-11-22 21:32] LABS: #Basophils 0.1 thou/uL (0.0-0.2); #Eosinphils 0.1 thou/uL (0.0-0.7); #Lymphocytes 2.3 thou/uL (1.20-3.40); #Monocytes 0.5 thou/uL (0.11-0.59); #Neutrophils 6.3 thou/uL (1.40-6.50); %Basophils 0.9 % (0.0-1.0); %Eosinophils 1.6 % (0.0-10.0); %Lymphocytes 24.5 % (21.0-51.0); Mean Corpuscular HGB CONC 32.2 g/dL (32.0-36.0); Mean Corpuscular Hemoglobin 28.8 pg (27.0-31.0); Mean Corpuscular Volume 89.6 fL (78.0-98.0); Mean Platelet Volume 6.9 fL (7.4-10.4); Platelet Count 322 thou/uL (130-400); RBC Distribution Width 13.1 % (11.5-14.5); Red Blood Cell (RBC) Count 4.53 mill/uL (4.20-5.40); White Blood Cell (WBC) Count 9.2 thou/uL (4.8-10.8)
[2020-11-22] MEDS ORDERED: Metoclopramide HCl 10 MG/2 ML VIAL ONE (21:32)
[2020-11-22] MEDS ORDERED: diphenhydrAMINE 50 MG/ML VIAL ONE (21:32)
[2020-11-22 21:36] LABS: BHCG - Serum Negative (NEGATIVE); Pregs Control Background? CLEAR/WHITE (CLR/WHITE); Pregs Control Bar Appear? YES (CONTROL BAR)
[2020-11-22 21:40] LABS: INR-International Normal Ratio 0.9; Prothrombin Time 12.6 sec (12.0-14.7)
[2020-11-22 21:49] LABS: ALT (SGPT) 46 U/L (8-55); AST (SGOT) 21 U/L (5-34); Alkaline Phosphatase 92 U/L (40-110); Anion Gap 15 mmol/L (10-20); BUN (Urea Nitrogen) 12 mg/dL (7.0-18.7); Bilirubin, Total 0.2 mg/dL (0.2-1.2); Calc. Creatinine Clearance 0 mL/min (70-130); Carbon Dioxide 25 mmol/L (22-29); Chloride 104 mmol/L (98-107); Globulin 3.2 g/dL (2.4-3.5); Glucose 85 mg/dL (70-105); Potassium 3.7 mmol/L (3.5-5.1); Protein, Total 7.2 g/dL (6.0-8.3); Sodium 140 mmol/L (136-145)
[2020-11-22] MEDS ORDERED: methylPREDNISolone Sod Succ/PF 125 MG/2 ML VIAL ONE (22:06)
[2020-11-22] MEDS ORDERED: Ketorolac Tromethamine 30 MG/ML VIAL ONE (22:06)
[2020-11-23 14:24] LABS: SARS-CoV-2 PCR by NAA Not Detected (NotDetected)
== END 2020-11-22 23:08 | disposition home or self-care (01) ==
LOC: BURERS 20:52
DX: G43.909 Migraine, unspecified, not intractable, without status migrainosus (principal); Z20.822 Contact with and (suspected) exposure to COVID-19; F17.210 Nicotine dependence, cigarettes, uncomplicated
CPT/HCPCS: 80053; 84703; 85025; 85610; 87635; 87804; 96365; 96375; J1200; J1885; J2765; J2930; U0003; U0005

== ENCOUNTER 2021-02-05 03:34 | Emergency (ER) | payer SELFPAY ==
[2021-02-05] MEDS ORDERED: hydrOXYzine 25 MG TAB ONE (03:55)
[2021-02-05] MEDS ORDERED: methylPREDNISolone Sod Succ/PF 125 MG/2 ML VIAL ONE (03:55)
[2021-02-05] MEDS ORDERED: Famotidine 20 MG TAB ONE (03:55)
== END 2021-02-05 04:39 | disposition home or self-care (01) ==
LOC: BURERS 03:34
DX: L50.0 Allergic urticaria (principal); F17.210 Nicotine dependence, cigarettes, uncomplicated
CPT/HCPCS: 96372; 99283; J2930